=== PATIENT | female | born 1960 | race Caucasian/White ===

== ENCOUNTER 2024-01-17 08:34 | Inpatient (IN) | payer OTHER ==
[2024-01-17 09:39] VITALS: BMI 29.0
[2024-01-17 12:17] LABS: BASO % 0.7 % (0-2.0); EOS % 0.7 % (0-4.5); HEMATOCRIT 31.9 % (32.4-45.2); HEMOGLOBIN 10.7 GM/dL (10.7-15.3); MCH 30.9 pg (25.7-33.7); MCHC 33.4 g/dl (32.0-36.0); MEAN CELL VOLUME 92.6 fl (80-96); MEAN PLT VOLUME 7.6 fl (7.5-11.1); MONO % 4.8 % (3.8-10.2); NEUT % 75.8 % (42.8-82.8); PLATELET COUNT 455 10^3/uL (134-434); RBC 3.45 M/mm3 (3.60-5.2); RDW 15.1 % (11.6-15.6); WHITE BLOOD COUNT 13.9 K/mm3 (4.0-10.0)
[2024-01-17 12:28] LABS: ACTIVATED PTT 24.3 SECONDS (25.2-36.5); INR 0.98 (0.83-1.09); PROTHROMBIN TIME (PATIENT) 11.4 SEC (9.7-13.0)
[2024-01-17 12:41] LABS: POTASSIUM 3.6 mmol/L (3.5-5.1)
[2024-01-17 12:44] LABS: ALBUMIN 2.9 g/dl (3.4-5.0); BLOOD UREA NITROGEN 16.2 mg/dL (7-18)
[2024-01-17 12:47] LABS: CREATININE 1.2 mg/dL (0.55-1.3)
[2024-01-17 12:48] LABS: BILIRUBIN,TOTAL 0.3 mg/dL (0.2-1)
[2024-01-17 17:42] LABS: URINE APPEARANCE CLEAR; URINE BILIRUBIN NEGATIVE (NEGATIVE); URINE COLOR YELLOW; URINE GLUCOSE (UA) TRACE (NEGATIVE); URINE KETONE NEGATIVE (NEGATIVE); URINE LEUK ESTERASE NEGATIVE (NEGATIVE); URINE NITRITE NEGATIVE (NEGATIVE); URINE PROTEIN NEGATIVE (NEGATIVE); URINE UROBILINOGEN 0.2 mg/dL (0.2-1.0)
[2024-01-17] MEDS: SODIUM CHLORIDE 1,000 ML IV SCH (22:54)
[2024-01-18 03:16] VITALS: RESP 20
[2024-01-18 08:41] LABS: HEMATOCRIT 30.7 % (32.4-45.2); HEMOGLOBIN 10.5 GM/dL (10.7-15.3); MCH 31.5 pg (25.7-33.7); MCHC 34.2 g/dl (32.0-36.0); MEAN CELL VOLUME 92.1 fl (80-96); PLATELET COUNT 416 10^3/uL (134-434); RBC 3.33 M/mm3 (3.60-5.2); RDW 14.9 % (11.6-15.6); WHITE BLOOD COUNT 8.1 K/mm3 (4.0-10.0)
[2024-01-18 08:52] LABS: POTASSIUM 3.8 mmol/L (3.5-5.1)
[2024-01-18 09:04] LABS: BLOOD UREA NITROGEN 10.2 mg/dL (7-18); CALCIUM 8.8 mg/dL (8.5-10.1)
[2024-01-18 09:05] LABS: ALBUMIN 2.6 g/dl (3.4-5.0)
[2024-01-18 09:08] LABS: CREATININE 0.7 mg/dL (0.55-1.3); PHOSPHOROUS 2.8 mg/dL (2.5-4.9)
[2024-01-18 09:09] LABS: TOT PROT 6.3 g/dl (6.4-8.2)
[2024-01-18 09:11] LABS: BILIRUBIN,TOTAL 0.4 mg/dL (0.2-1)
[2024-01-18] MEDS: CLOPIDOGREL BISULFATE 75 MG TABLET (FP) PO SCH (09:36)
[2024-01-18] MEDS: ACETAMINOPHEN 325 MG TABLET (FP) PO PRN (18:33)
[2024-01-19] MEDS: MELATONIN 5 MG TABLETS PO ONE (01:35)
[2024-01-19 05:22] VITALS: BP 176/98; PULSE 94
[2024-01-19 06:21] VITALS: TEMP 98.6
[2024-01-19] MEDS: amLODIPine BESYLATE 5 MG TABLET (FP) PO ONE (06:51)
[2024-01-19] MEDS ORDERED: ALBUTEROL SO4 0.083% IH SOL 2.5 MG/3 ML VIAL.NEB. NEB PRN (08:32)
[2024-01-19] MEDS ORDERED: CHOLECALCIFEROL (VIT D3) 400 UNIT (10 MCG) TABLET PO SCH (08:45)
[2024-01-19] MEDS: ASPIRIN 81 MG CHEWABLE TABLETS PO SCH (10:14)
[2024-01-19] MEDS: CALCIUM CARBONATE 650 MG TABLET PO SCH (10:14)
[2024-01-19] MEDS: DOLUTEGRAVIR SODIUM 50 MG TABLET (NON-FORMULARY) PO SCH (12:25)
[2024-01-19] MEDS: DARUNAVIR 800 MG/COBICISTAT 150MG TABLET PO SCH (12:25)
[2024-01-19] MEDS ORDERED: ZOLPIDEM TARTRATE 5 MG TABLET PO PRN (22:00)
[2024-01-19] MEDS ORDERED: ROSUVASTATIN CA 20 MG TABLET PO SCH (22:00)
== END 2024-01-19 14:29 | disposition left against medical advice (07) | DRG 347 ==
LOC: JER 08:34 → JERBED 13:10 → J4W 21:48 → OBSVTOIN 01-18 09:24
PROVIDERS: ADMIT Internal Medicine; ATTEND Internal Medicine
DX: M48.02 Spinal stenosis, cervical region (principal); G95.20 Unspecified cord compression; R55 Syncope and collapse; I73.9 Peripheral vascular disease, unspecified; I10 Essential (primary) hypertension; R20.0 Anesthesia of skin; Z21 Asymptomatic human immunodeficiency virus [HIV] infection status
CPT/HCPCS: 36415; 70450-TC; 71045-TC-FY; 72125-TC; 72170-TC-FY; 80053; 81003; 82962; 83735; 84100; 84484; 85025; 85027; 85610; 85730; 86850; 86900; 86901; 87086; 93005; 93010; 93971-TC; 97116-GP; 97162-GP; 99285-25; G0378